=== PATIENT | male | born 1970 | race Two or more races ===

== ENCOUNTER 2020-09-14 16:20 | Outpatient (CLI) | payer BC, SELFPAY ==
--- NOTE | ~2020-09-14 | XR_ITS ---
EXAMINATION: XR ankle LT min 3V, XR tibia fibula LT 2V EXAM DATE: 09/14/2020 16:44 (accession [id number]), 09/14/2020 16:45 (accession [id number]) INDICATION: Arthrosis left ankle, injury years ago. Left ankle lateral pain. TECHNIQUE: Left ankle frontal, lateral and oblique projections obtained and reviewed. Tibia and fibul a frontal and lateral projections. There is no prior study for comparison. FINDINGS: There are old healed left tibial and fibular distal diaphyseal fractures with osseous bridg ing of the distal tibiofibular syndesmosis. 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 The talar dome and tibial plafond surfaces have irregular cortication. There is diffuse scattered mottled bone density t hroughout the tibia and the talar dome. Could be sequela from prior or chronic osteomyelitis, but ple ase clinically correlate. No periosteal reaction. Diffuse soft tissue swelling. Hindfoot is unremarka ble. IMPRESSION: 1. Prior left tibial fibular distal diaphyseal fractures with moderate to severe ankle joint seconda ry osteoarthritis. 2. Diffuse mottled bone density could be sequela from prior or chronic osteomyelitis. No periosteal reaction. Please clinically correlate. Reviewed, dictated and finalized at location A. IMPRESSION: 1. Prior left tibial fibular distal diaphyseal fractures with moderate to ilsa re ankle joint secondary osteoarthritis. 2. Diffuse mottled bone density could be sequela from prior or chronic osteomy elitis. No periosteal reaction. Please clinically correlate.
== END 2020-09-14 16:21 | disposition home or self-care (01) ==
PROVIDERS: PCP Family Medicine; Visit Provider Podiatrist Foot & Ankle Surgery
DX: M19.072 Primary osteoarthritis, left ankle and foot (principal)
CPT/HCPCS: 73590; 73610